=== PATIENT | male | born 1975 | race Caucasian/White ===

== ENCOUNTER 2022-05-07 13:06 | Inpatient (IN) | payer MEDICAID, OTHER ==
[~2022-05-07] VITALS: Ht 170.2 cm; Wt 97.5 kg
[2022-05-07] MEDS ORDERED: ACETAMINOPHEN 325MG TABLET PO ONE (15:00)
[2022-05-07] MEDS ORDERED: MORPHINE SULFATE 10 MG/ML CPJ IM ONE (15:00)
[2022-05-07] MEDS ORDERED: MORPHINE SULFATE 10 MG/ML CPJ IM NR (15:15)
[2022-05-07] MEDS ORDERED: ACETAMINOPHEN 325MG TABLET PO NR (15:30)
[2022-05-07 17:13] LABS: BASOPHILS % 0.4 % (0.0-2.0); EOSINOPHILS % 0.2 % (0.0-5.0); HEMATOCRIT. 28.1 % (42.0-52.0); HEMOGLOBIN. 9.6 g/dL (14.0-18.0); LYMPHOCYTES % 8.4 % (20.0-50.0); MEAN CORPUSCULAR VOLUME 82.4 fL (80.0-94.0); MEAN PLATELET VOLUME 6.9 fl (7.4-10.4); PLATELET 534 x1000/uL (130-400); RED BLOOD CELL COUNT 3.41 mill/uL (4.7-6.1); RED CELL DISTRIBUTION WIDTH 12.8 % (11.6-14.6)
[2022-05-07 17:23] LABS: PARTIAL THROMBOPLASTIN TIME 32.5 sec (23.4-31.0); PROTHROMBIN TIME 11.2 sec (9.6-11.0)
[2022-05-07] MEDS ORDERED: SODIUM CHLORIDE 0.9% 1,000 ML IV NR (18:30)
[2022-05-07] MEDS ORDERED: INSULIN REGULAR (HUMULIN R) 300UNITS/3ML VIAL SUBCUT NR (18:30)
[2022-05-07] MEDS ORDERED: HEPARIN 80 UNITS/KG BOLUS IV NR (18:45)
[2022-05-07] MEDS ORDERED: HEPARIN 25,000 UNITS PREMIX 250 ML IV SCH ×3 (19:00→21:15)
[2022-05-07] MEDS ORDERED: INSULIN REGULAR (HUMULIN R) 300UNITS/3ML VIAL IV ONE (19:15)
[2022-05-07 21:07] LABS: CLARITY URINE CLEAR (CLEAR); COLOR URINE YELLOW (YELLOW); KETONES URINE TRACE (NEGATIVE); LEUKOCYTE ESTERASE URINE NEGATIVE (NEGATIVE); NITRITE URINE NEGATIVE (NEGATIVE); OCCULT BLOOD URINE 1+ (NEGATIVE); PROTEIN URINE 3+ (NEGATIVE); SPECIFIC GRAVITY URINE 1.028 (1.005-1.030); UROBILINOGEN URINE 0.2 E.U./dL (0.2-1.0)
[2022-05-07] MEDS ORDERED: HYDROMORPHONE HCL/PF 2MG/ML CPJ IV PRN (21:15)
[2022-05-07] MEDS ORDERED: ONDANSETRON HCL 4MG/2ML INJ IV PRN (21:15)
[2022-05-07] MEDS ORDERED: ZOLPIDEM TARTRATE 5MG TABLET PO PRN (21:15)
[2022-05-07] MEDS ORDERED: SODIUM CHLORIDE 0.9% 1,000 ML IV ONE (21:45)
[2022-05-07] MEDS ORDERED: ENOXAPARIN 100MG/ML SYR SUBCUT SCH (22:00)
[2022-05-07] MEDS ORDERED: INSULIN GLARGINE 100 UNITS/ML SUBCUT SCH (22:00)
[2022-05-07] MEDS ORDERED: PIPERACILLIN/TAZ 3.375G PREMIX 50 ML IV SCH (22:00)
[2022-05-07] MEDS: ENOXAPARIN 100MG/ML SYR SUBCUT SCH (23:09)
[2022-05-08 01:14] VITALS: BP 148/76
[2022-05-08] MEDS ORDERED: HEPARIN BOLUS PRN aPTT <36 IV (02:00)
[2022-05-08] MEDS ORDERED: HEPARIN BOLUS PRN aPTT 37-44 IV (02:00)
[2022-05-08] MEDS ORDERED: LISI20TA31 MT (03:53)
[2022-05-08] MEDS ORDERED: INSLIS SUBCUT (03:53)
[2022-05-08] MEDS ORDERED: LIP40 MT (03:53)
[2022-05-08 06:10] LABS: BASOPHILS % 0.1 % (0.0-2.0); EOSINOPHILS % 0.1 % (0.0-5.0); HEMATOCRIT. 25.6 % (42.0-52.0); HEMOGLOBIN. 8.5 g/dL (14.0-18.0); LYMPHOCYTES % 7.5 % (20.0-50.0); MEAN CORPUSCULAR HEMOGLOBIN 27.5 pg (28.0-32.0); MEAN CORPUSCULAR VOLUME 82.5 fL (80.0-94.0); MEAN PLATELET VOLUME 7.1 fl (7.4-10.4); MONOCYTES % 7.3 % (2.0-8.0); PLATELET 450 x1000/uL (130-400); RED CELL DISTRIBUTION WIDTH 12.9 % (11.6-14.6)
[2022-05-08 06:29] LABS: CHLORIDE 93 mEq/L (98-107)
[2022-05-08] MEDS: PIPERACILLIN/TAZOBACTAM 3.375G in DEXT 5% WATER 50ML IV SCH ×3 (06:58→21:15)
[2022-05-08] MEDS ORDERED: DEXTROSE 50% WATER 50ML SYRINGE IV PRN (07:00)
[2022-05-08] MEDS: INSULIN LISPRO 100 UNITS/ML SUBCUT SCH ×4 (07:05→20:44)
[2022-05-08] MEDS: BLOOD SUGAR DIAGNOSTIC STRIP TEST SCH ×4 (07:05→20:44)
[2022-05-08 07:57] VITALS: BP 174/92
[2022-05-08] MEDS: ENOXAPARIN 100MG/ML SYR SUBCUT SCH ×2 (08:48→20:43)
[2022-05-08] MEDS: SODIUM CHLORIDE 0.9% 1,000 ML IV SCH ×2 (09:00→14:22)
[2022-05-08] MEDS ORDERED: NALOXONE HCL 0.4MG/ML VIAL IV PRN (09:15)
[2022-05-08] MEDS: LISINOPRIL 20MG TABLET PO SCH (09:51)
[2022-05-08] MEDS: INSULIN GLARGINE 100 UNITS/ML SUBCUT SCH ×2 (09:52→21:53)
[2022-05-08] MEDS: HYDROCODONE/ACETAMINOPHEN 5/325MG TABLET PO PRN ×2 (09:58→14:23)
[2022-05-08] MEDS ORDERED: INSULIN GLARGINE 100 UNITS/ML SUBCUT SCH (10:00)
[2022-05-08 12:00] VITALS: BP 166/82
[2022-05-08] MEDS ORDERED: INSULIN LISPRO 100 UNITS/ML SUBCUT NR (12:00)
[2022-05-08] MEDS: CLONIDINE 0.1MG TABLET PO PRN ×2 (12:44→20:44)
[2022-05-08 16:00] VITALS: BP 141/73
[2022-05-08 20:00] VITALS: BP 160/76
[2022-05-08] MEDS: FAMOTIDINE 20MG TABLET PO SCH (20:43)
[2022-05-09] VITALS (9 sets, daily range): BP systolic 138–159; BP diastolic 60–87
[2022-05-09] MEDS: HYDROCODONE/ACETAMINOPHEN 5/325MG TABLET PO PRN ×4 (00:34→14:14)
[2022-05-09] MEDS: SODIUM CHLORIDE 0.9% 1,000 ML IV SCH ×2 (05:00→17:20)
[2022-05-09] MEDS: PIPERACILLIN/TAZOBACTAM 3.375G in DEXT 5% WATER 50ML IV SCH ×4 (05:35→21:14)
[2022-05-09] MEDS: BLOOD SUGAR DIAGNOSTIC STRIP TEST SCH ×4 (05:56→21:08)
[2022-05-09] MEDS: INSULIN LISPRO 100 UNITS/ML SUBCUT SCH ×4 (05:56→21:08)
[2022-05-09 06:47] LABS: BASOPHILS % 0.3 % (0.0-2.0); EOSINOPHILS % 0.2 % (0.0-5.0); HEMOGLOBIN. 7.1 g/dL (14.0-18.0); LYMPHOCYTES % 10.8 % (20.0-50.0); MEAN CORPUSCULAR HEMOGLOBIN 27.4 pg (28.0-32.0); MEAN CORPUSCULAR VOLUME 80.9 fL (80.0-94.0); MEAN PLATELET VOLUME 6.6 fl (7.4-10.4); MONOCYTES % 8.5 % (2.0-8.0); NEUTROPHILS % 80.2 % (40.0-76.0); PLATELET 442 x1000/uL (130-400); RED BLOOD CELL COUNT 2.59 mill/uL (4.7-6.1); RED CELL DISTRIBUTION WIDTH 12.6 % (11.6-14.6)
[2022-05-09 07:38] LABS: HEMATOCRIT. 20.9 % (42.0-52.0)
[2022-05-09] MEDS: LISINOPRIL 20MG TABLET PO SCH (08:57)
[2022-05-09] MEDS: ENOXAPARIN 100MG/ML SYR SUBCUT SCH (08:58)
[2022-05-09] MEDS: INSULIN GLARGINE 100 UNITS/ML SUBCUT SCH ×2 (10:00→21:54)
[2022-05-09 15:21] LABS: HEMATOCRIT 20.3 % (42.0-52.0)
[2022-05-09] MEDS: HYDROCODONE/ACETAMINOPHEN 10/325MG TABLET PO PRN (17:59)
[2022-05-09] MEDS: FAMOTIDINE 20MG TABLET PO SCH (21:03)
[2022-05-10] VITALS (8 sets, daily range): BP systolic 124–175; BP diastolic 75–88
[2022-05-10] MEDS: CLONIDINE 0.1MG TABLET PO PRN ×2 (01:48→08:13)
[2022-05-10] MEDS: PIPERACILLIN/TAZOBACTAM 3.375G in DEXT 5% WATER 50ML IV SCH ×3 (05:35→22:25)
[2022-05-10] MEDS: HYDROCODONE/ACETAMINOPHEN 10/325MG TABLET PO PRN ×3 (05:57→18:27)
[2022-05-10] MEDS: BLOOD SUGAR DIAGNOSTIC STRIP TEST SCH ×4 (05:58→21:00)
[2022-05-10] MEDS: INSULIN LISPRO 100 UNITS/ML SUBCUT SCH ×4 (05:58→22:22)
[2022-05-10 06:53] LABS: BASOPHILS % 0.2 % (0.0-2.0); EOSINOPHILS % 0.4 % (0.0-5.0); HEMOGLOBIN. 7.7 g/dL (14.0-18.0); LYMPHOCYTES % 9.3 % (20.0-50.0); MEAN CORPUSCULAR HEMOGLOBIN 27.9 pg (28.0-32.0); MEAN CORPUSCULAR VOLUME 79.6 fL (80.0-94.0); MEAN PLATELET VOLUME 6.6 fl (7.4-10.4); MONOCYTES % 8.8 % (2.0-8.0); NEUTROPHILS % 81.3 % (40.0-76.0); PLATELET 441 x1000/uL (130-400); RED BLOOD CELL COUNT 2.76 mill/uL (4.7-6.1); RED CELL DISTRIBUTION WIDTH 12.9 % (11.6-14.6)
[2022-05-10 07:08] LABS: CHLORIDE 95 mEq/L (98-107)
[2022-05-10] MEDS: LISINOPRIL 20MG TABLET PO SCH (08:13)
[2022-05-10] MEDS: INSULIN GLARGINE 100 UNITS/ML SUBCUT SCH ×2 (09:21→22:24)
[2022-05-10 16:55] LABS: PROTHROMBIN TIME 10.9 sec (9.6-11.0)
[2022-05-10 17:11] LABS: TOTAL IRON BINDING CAPACITY 105 ug/dL (250-450)
[2022-05-10] MEDS: SODIUM CHLORIDE 0.9% 1,000 ML IV SCH (18:26)
[2022-05-10] MEDS: FAMOTIDINE 20MG TABLET PO SCH (22:19)
[2022-05-10] MEDS: ACETAMINOPHEN 325MG TABLET PO PRN (22:20)
[2022-05-11] VITALS: BP 144/91
[2022-05-11] MEDS: HYDROCODONE/ACETAMINOPHEN 10/325MG TABLET PO PRN ×3 (01:21→17:14)
[2022-05-11 04:00] VITALS: BP 154/98
[2022-05-11] MEDS: PIPERACILLIN/TAZOBACTAM 3.375G in DEXT 5% WATER 50ML IV SCH ×3 (06:19→21:22)
[2022-05-11] MEDS: SODIUM CHLORIDE 0.9% 1,000 ML IV SCH ×4 (06:19→21:38)
[2022-05-11 06:31] LABS: BASOPHILS % 0.2 % (0.0-2.0); EOSINOPHILS % 0.6 % (0.0-5.0); HEMATOCRIT. 21.9 % (42.0-52.0); HEMOGLOBIN. 7.6 g/dL (14.0-18.0); LYMPHOCYTES % 9.4 % (20.0-50.0); MEAN CORPUSCULAR HEMOGLOBIN 27.4 pg (28.0-32.0); MEAN PLATELET VOLUME 6.5 fl (7.4-10.4); MONOCYTES % 10.6 % (2.0-8.0); NEUTROPHILS % 79.2 % (40.0-76.0); PLATELET 421 x1000/uL (130-400); RED BLOOD CELL COUNT 2.77 mill/uL (4.7-6.1); RED CELL DISTRIBUTION WIDTH 13.2 % (11.6-14.6)
[2022-05-11] MEDS: BLOOD SUGAR DIAGNOSTIC STRIP TEST SCH ×4 (06:35→21:13)
[2022-05-11] MEDS: INSULIN LISPRO 100 UNITS/ML SUBCUT SCH ×4 (07:40→21:00)
[2022-05-11 08:00] VITALS: BP 173/87
[2022-05-11] MEDS: INSULIN GLARGINE 100 UNITS/ML SUBCUT SCH ×2 (10:22→21:25)
[2022-05-11] MEDS: LISINOPRIL 20MG TABLET PO SCH (10:29)
[2022-05-11 12:00] VITALS: BP 139/77
[2022-05-11 16:00] VITALS: BP 119/67
[2022-05-11] MEDS: ACETAMINOPHEN 325MG TABLET PO PRN (16:19)
[2022-05-11 20:00] VITALS: BP 140/80
[2022-05-11] MEDS: FAMOTIDINE 20MG TABLET PO SCH (21:28)
[2022-05-12] VITALS (10 sets, daily range): BP systolic 153–168; BP diastolic 81–99
[2022-05-12] MEDS: SODIUM CHLORIDE 0.9% 1,000 ML IV SCH ×3 (00:16→17:55)
[2022-05-12] MEDS: HYDROCODONE/ACETAMINOPHEN 10/325MG TABLET PO PRN ×4 (00:18→20:33)
[2022-05-12] MEDS: PIPERACILLIN/TAZOBACTAM 3.375G in DEXT 5% WATER 50ML IV SCH ×3 (05:16→21:42)
[2022-05-12] MEDS: BLOOD SUGAR DIAGNOSTIC STRIP TEST SCH ×4 (06:36→20:38)
[2022-05-12 06:51] LABS: BASOPHILS % 0.2 % (0.0-2.0); EOSINOPHILS % 0.5 % (0.0-5.0); HEMATOCRIT. 21.2 % (42.0-52.0); HEMOGLOBIN. 7.2 g/dL (14.0-18.0); LYMPHOCYTES % 9.3 % (20.0-50.0); MEAN CORPUSCULAR HEMOGLOBIN 27.2 pg (28.0-32.0); MEAN CORPUSCULAR VOLUME 79.9 fL (80.0-94.0); MEAN PLATELET VOLUME 6.2 fl (7.4-10.4); MONOCYTES % 9.6 % (2.0-8.0); NEUTROPHILS % 80.4 % (40.0-76.0); PLATELET 482 x1000/uL (130-400); RED BLOOD CELL COUNT 2.66 mill/uL (4.7-6.1)
[2022-05-12 07:22] LABS: CHLORIDE 96 mEq/L (98-107)
[2022-05-12] MEDS: LISINOPRIL 20MG TABLET PO SCH (08:20)
[2022-05-12] MEDS: INSULIN GLARGINE 100 UNITS/ML SUBCUT SCH ×2 (10:08→21:43)
[2022-05-12] MEDS: INSULIN LISPRO 100 UNITS/ML SUBCUT SCH ×3 (12:52→20:38)
[2022-05-12] MEDS: CLONIDINE 0.1MG TABLET PO PRN (15:07)
[2022-05-12 19:12] LABS: HEMATOCRIT 23.8 % (42.0-52.0); HEMOGLOBIN 8.1 g/dL (14.0-18.0)
[2022-05-12] MEDS: FAMOTIDINE 20MG TABLET PO SCH (20:38)
[2022-05-13] VITALS: BP 147/84
[2022-05-13] MEDS ORDERED: VANCOMYCIN 1,750 MG in DEXT 5% WATER 250 ML IV NR ×2
[2022-05-13] MEDS: HYDROCODONE/ACETAMINOPHEN 10/325MG TABLET PO PRN ×4 (02:33→23:16)
[2022-05-13 04:00] VITALS: BP 148/79
[2022-05-13] MEDS: SODIUM CHLORIDE 0.9% 1,000 ML IV SCH ×2 (05:30→15:55)
[2022-05-13] MEDS: PIPERACILLIN/TAZOBACTAM 3.375G in DEXT 5% WATER 50ML IV SCH (05:46)
[2022-05-13] MEDS: BLOOD SUGAR DIAGNOSTIC STRIP TEST SCH ×4 (05:54→20:32)
[2022-05-13] MEDS: INSULIN LISPRO 100 UNITS/ML SUBCUT SCH ×4 (05:54→20:32)
[2022-05-13 06:42] LABS: BASOPHILS % 0.2 % (0.0-2.0); EOSINOPHILS % 0.7 % (0.0-5.0); HEMATOCRIT. 21.2 % (42.0-52.0); HEMOGLOBIN. 7.4 g/dL (14.0-18.0); LYMPHOCYTES % 9.6 % (20.0-50.0); MEAN CORPUSCULAR VOLUME 80.4 fL (80.0-94.0); MEAN PLATELET VOLUME 6.1 fl (7.4-10.4); MONOCYTES % 9.8 % (2.0-8.0); NEUTROPHILS % 79.7 % (40.0-76.0); PLATELET 455 x1000/uL (130-400); RED BLOOD CELL COUNT 2.64 mill/uL (4.7-6.1); RED CELL DISTRIBUTION WIDTH 12.9 % (11.6-14.6)
[2022-05-13 08:26] VITALS: BP 173/90
[2022-05-13] MEDS: LISINOPRIL 20MG TABLET PO SCH (08:39)
[2022-05-13] MEDS: CLONIDINE 0.1MG TABLET PO PRN (08:40)
[2022-05-13] MEDS: ACETAMINOPHEN 325MG TABLET PO PRN ×2 (08:40→15:55)
[2022-05-13] MEDS: INSULIN GLARGINE 100 UNITS/ML SUBCUT SCH ×2 (10:20→21:16)
[2022-05-13 12:00] VITALS: BP 150/73
[2022-05-13 15:40] VITALS: BP 154/80
[2022-05-13] MEDS: VANCOMYCIN 1250MG in DEXTROSE 5% WATER 250ML IV SCH (15:55)
[2022-05-13 20:00] VITALS: BP 127/67
[2022-05-13 20:16] LABS: HEMATOCRIT 22.9 % (42.0-52.0)
[2022-05-13] MEDS: FAMOTIDINE 20MG TABLET PO SCH (20:32)
[2022-05-14] VITALS: BP 144/76
[2022-05-14 04:00] VITALS: BP 150/76
[2022-05-14] MEDS: SODIUM CHLORIDE 0.9% 1,000 ML IV SCH ×2 (04:32→16:17)
[2022-05-14 06:10] LABS: BASOPHILS % 0.2 % (0.0-2.0); EOSINOPHILS % 0.8 % (0.0-5.0); HEMATOCRIT. 22.5 % (42.0-52.0); HEMOGLOBIN. 7.6 g/dL (14.0-18.0); LYMPHOCYTES % 10.3 % (20.0-50.0); MEAN CORPUSCULAR HEMOGLOBIN 27.5 pg (28.0-32.0); MEAN CORPUSCULAR VOLUME 80.8 fL (80.0-94.0); MEAN PLATELET VOLUME 6.1 fl (7.4-10.4); MONOCYTES % 10.4 % (2.0-8.0); NEUTROPHILS % 78.3 % (40.0-76.0); PLATELET 546 x1000/uL (130-400); RED BLOOD CELL COUNT 2.78 mill/uL (4.7-6.1); RED CELL DISTRIBUTION WIDTH 12.9 % (11.6-14.6)
[2022-05-14] MEDS: INSULIN LISPRO 100 UNITS/ML SUBCUT SCH ×4 (06:39→21:00)
[2022-05-14] MEDS: BLOOD SUGAR DIAGNOSTIC STRIP TEST SCH ×4 (06:39→21:59)
[2022-05-14 07:52] VITALS: BP 149/74
[2022-05-14] MEDS: ACETAMINOPHEN 325MG TABLET PO PRN ×2 (08:04→15:08)
[2022-05-14] MEDS: LISINOPRIL 20MG TABLET PO SCH (08:04)
[2022-05-14] MEDS ORDERED: LIDOCAINE HCL 1% 10 MG/ML 10ML VIAL ONE (08:09)
[2022-05-14] MEDS ORDERED: SODIUM BICARBONATE 4% (2.4MEQ) 5ML VIAL IV ONE (08:09)
[2022-05-14] MEDS: INSULIN GLARGINE 100 UNITS/ML SUBCUT SCH ×2 (10:00→22:00)
[2022-05-14] MEDS: VANCOMYCIN 1250MG in DEXTROSE 5% WATER 250ML IV SCH (10:13)
[2022-05-14] MEDS: HYDROCODONE/ACETAMINOPHEN 10/325MG TABLET PO PRN (10:13)
[2022-05-14 11:36] VITALS: BP 158/86
[2022-05-14] MEDS ORDERED: DEXT 5%/0.9% NACL 1,000 ML IV SCH (13:45)
[2022-05-14] MEDS: LIDOCAINE 5% PATCH TOP SCH (14:07)
[2022-05-14] MEDS ORDERED: MORPHINE SULFATE 4 MG/ML CPJ (NOT FOR IM USE) IV NR (14:08)
[2022-05-14] MEDS ORDERED: MORPHINE SULFATE 4 MG/ML CPJ (NOT FOR IM USE) IV PRN (14:15)
[2022-05-14] MEDS: CLONIDINE 0.1MG TABLET PO PRN ×2 (15:09→23:48)
[2022-05-14 15:14] VITALS: BP 179/98
[2022-05-14 20:00] VITALS: BP 169/88
[2022-05-14] MEDS: FAMOTIDINE 20MG TABLET PO SCH (23:45)
[2022-05-15] VITALS (7 sets, daily range): BP systolic 138–168; BP diastolic 70–81
[2022-05-15 03:06] LABS: HEMOGLOBIN. 7.3 g/dL (14.0-18.0); MEAN CORPUSCULAR HEMOGLOBIN 27.9 pg (28.0-32.0); MEAN CORPUSCULAR VOLUME 80.7 fL (80.0-94.0); MEAN PLATELET VOLUME 5.9 fl (7.4-10.4); PLATELET 584 x1000/uL (130-400); RED CELL DISTRIBUTION WIDTH 13.3 % (11.6-14.6)
[2022-05-15 03:13] LABS: CHLORIDE 101 mEq/L (98-107)
[2022-05-15 03:19] LABS: VANCOMYCIN TROUGH 16.2 ug/mL (5.0-10.0)
[2022-05-15] MEDS: MORPHINE SULFATE 2 MG/ML CPJ (NOT FOR IM USE) IV PRN ×4 (03:47→21:19)
[2022-05-15] MEDS: VANCOMYCIN 1250MG in DEXTROSE 5% WATER 250ML IV SCH ×2 (03:48→21:20)
[2022-05-15] MEDS: SODIUM CHLORIDE 0.9% 1,000 ML IV SCH ×2 (03:48→13:39)
[2022-05-15 05:19] LABS: PLATELET ESTIMATE INCREASED
[2022-05-15] MEDS: INSULIN LISPRO 100 UNITS/ML SUBCUT SCH ×4 (06:39→21:21)
[2022-05-15] MEDS: BLOOD SUGAR DIAGNOSTIC STRIP TEST SCH ×4 (06:39→21:21)
[2022-05-15] MEDS: CLONIDINE 0.1MG TABLET PO PRN (08:04)
[2022-05-15] MEDS: LIDOCAINE 5% PATCH TOP SCH (08:04)
[2022-05-15] MEDS: LISINOPRIL 20MG TABLET PO SCH (08:04)
[2022-05-15] MEDS: INSULIN GLARGINE 100 UNITS/ML SUBCUT SCH ×2 (09:39→23:17)
[2022-05-15] MEDS: FAMOTIDINE 20MG TABLET PO SCH (21:17)
[2022-05-16] VITALS: BP 159/79
[2022-05-16] MEDS: ACETAMINOPHEN 325MG TABLET PO PRN ×2 (00:06→16:48)
[2022-05-16 04:00] VITALS: BP 149/82
[2022-05-16] MEDS: SODIUM CHLORIDE 0.9% 1,000 ML IV SCH ×3 (06:17→16:49)
[2022-05-16] MEDS: INSULIN LISPRO 100 UNITS/ML SUBCUT SCH ×4 (06:21→20:48)
[2022-05-16] MEDS: BLOOD SUGAR DIAGNOSTIC STRIP TEST SCH ×4 (06:21→20:49)
[2022-05-16 07:26] LABS: BASOPHILS % 0.6 % (0.0-2.0); EOSINOPHILS % 0.6 % (0.0-5.0); HEMATOCRIT. 21.7 % (42.0-52.0); HEMOGLOBIN. 7.4 g/dL (14.0-18.0); LYMPHOCYTES % 10.2 % (20.0-50.0); MEAN CORPUSCULAR HEMOGLOBIN 27.8 pg (28.0-32.0); MEAN CORPUSCULAR VOLUME 82.2 fL (80.0-94.0); MONOCYTES % 8.9 % (2.0-8.0); NEUTROPHILS % 79.7 % (40.0-76.0); PLATELET 733 x1000/uL (130-400); RED BLOOD CELL COUNT 2.64 mill/uL (4.7-6.1); RED CELL DISTRIBUTION WIDTH 13.3 % (11.6-14.6)
[2022-05-16 07:45] VITALS: BP 152/77
[2022-05-16] MEDS: LISINOPRIL 20MG TABLET PO SCH (08:22)
[2022-05-16] MEDS: LIDOCAINE 5% PATCH TOP SCH (08:22)
[2022-05-16] MEDS: MORPHINE SULFATE 2 MG/ML CPJ (NOT FOR IM USE) IV PRN ×2 (09:49→20:41)
[2022-05-16] MEDS: INSULIN GLARGINE 100 UNITS/ML SUBCUT SCH ×2 (09:52→21:59)
[2022-05-16 11:48] VITALS: BP 142/85
[2022-05-16] MEDS: VANCOMYCIN 1250MG in DEXTROSE 5% WATER 250ML IV SCH (15:38)
[2022-05-16 16:00] VITALS: BP 145/80
[2022-05-16] MEDS ORDERED: SENNOSIDES 8.6MG TABLET PO PRN (17:15)
[2022-05-16] MEDS ORDERED: LACTULOSE 20G/30ML UDC PO SCH (17:15)
[2022-05-16 20:00] VITALS: BP 153/83
[2022-05-16] MEDS: FAMOTIDINE 20MG TABLET PO SCH (20:48)
[2022-05-16] MEDS: CEFTRIAXONE 1,000 MG in DEXTROSE 5% WATER 50 ML IV SCH (22:24)
[2022-05-17] VITALS (13 sets, daily range): BP systolic 141–175; BP diastolic 77–93
[2022-05-17] MEDS: MORPHINE SULFATE 2 MG/ML CPJ (NOT FOR IM USE) IV PRN ×3 (04:16→20:35)
[2022-05-17] MEDS: SODIUM CHLORIDE 0.9% 1,000 ML IV SCH ×2 (05:37→15:44)
[2022-05-17] MEDS: INSULIN LISPRO 100 UNITS/ML SUBCUT SCH ×4 (06:04→20:28)
[2022-05-17] MEDS: BLOOD SUGAR DIAGNOSTIC STRIP TEST SCH ×4 (06:04→20:28)
[2022-05-17] MEDS: LISINOPRIL 20MG TABLET PO SCH (08:07)
[2022-05-17] MEDS: LIDOCAINE 5% PATCH TOP SCH (08:07)
[2022-05-17] MEDS: DOCUSATE SODIUM 250MG CAPSULE PO SCH (08:08)
[2022-05-17 08:42] LABS: BASOPHILS % 0.6 % (0.0-2.0); EOSINOPHILS % 0.8 % (0.0-5.0); HEMATOCRIT. 21.4 % (42.0-52.0); HEMOGLOBIN. 7.1 g/dL (14.0-18.0); LYMPHOCYTES % 10.4 % (20.0-50.0); MEAN CORPUSCULAR HEMOGLOBIN 27.4 pg (28.0-32.0); MEAN CORPUSCULAR VOLUME 82.2 fL (80.0-94.0); MEAN PLATELET VOLUME 5.9 fl (7.4-10.4); MONOCYTES % 8.8 % (2.0-8.0); NEUTROPHILS % 79.4 % (40.0-76.0); PLATELET 771 x1000/uL (130-400); RED CELL DISTRIBUTION WIDTH 13.4 % (11.6-14.6)
[2022-05-17] MEDS: INSULIN GLARGINE 100 UNITS/ML SUBCUT SCH ×2 (10:02→21:39)
[2022-05-17] MEDS: HYDROCODONE/ACETAMINOPHEN 5/325MG TABLET PO PRN (14:59)
[2022-05-17] MEDS: METHYLPREDNISOLONE SOD SUCC 40 MG/ML VIAL IV SCH ×2 (16:27→23:22)
[2022-05-17] MEDS: CLONIDINE 0.1MG TABLET PO PRN (17:46)
[2022-05-17 18:08] LABS: CLARITY URINE CLEAR (CLEAR); COLOR URINE YELLOW (YELLOW); KETONES URINE NEGATIVE (NEGATIVE); LEUKOCYTE ESTERASE URINE NEGATIVE (NEGATIVE); NITRITE URINE NEGATIVE (NEGATIVE); OCCULT BLOOD URINE TRACE (NEGATIVE); PROTEIN URINE 2+ (NEGATIVE); SPECIFIC GRAVITY URINE 1.007 (1.005-1.030); UROBILINOGEN URINE 0.2 E.U./dL (0.2-1.0)
[2022-05-17] MEDS: FAMOTIDINE 20MG TABLET PO SCH (20:28)
[2022-05-17] MEDS: CEFTRIAXONE 1,000 MG in DEXTROSE 5% WATER 50 ML IV SCH (20:28)
[2022-05-17 21:06] LABS: HEMATOCRIT 26.7 % (42.0-52.0); HEMOGLOBIN 9.2 g/dL (14.0-18.0)
[2022-05-18] VITALS: BP 150/83
[2022-05-18] MEDS ORDERED: VANCOMYCIN 1250MG in DEXTROSE 5% WATER 250ML IV SCH ×2
[2022-05-18 04:00] VITALS: BP 159/97
[2022-05-18] MEDS: BLOOD SUGAR DIAGNOSTIC STRIP TEST SCH ×4 (05:59→20:44)
[2022-05-18] MEDS: INSULIN LISPRO 100 UNITS/ML SUBCUT SCH ×4 (05:59→21:07)
[2022-05-18 08:00] VITALS: BP 150/90
[2022-05-18 08:12] LABS: BASOPHILS % 0.1 % (0.0-2.0); HEMATOCRIT. 27.5 % (42.0-52.0); HEMOGLOBIN. 9.4 g/dL (14.0-18.0); LYMPHOCYTES % 8.6 % (20.0-50.0); MEAN CORPUSCULAR HEMOGLOBIN 28.2 pg (28.0-32.0); MEAN CORPUSCULAR VOLUME 82.5 fL (80.0-94.0); MEAN PLATELET VOLUME 5.8 fl (7.4-10.4); MONOCYTES % 2.1 % (2.0-8.0); NEUTROPHILS % 89.2 % (40.0-76.0); PLATELET 833 x1000/uL (130-400); RED BLOOD CELL COUNT 3.33 mill/uL (4.7-6.1); RED CELL DISTRIBUTION WIDTH 13.3 % (11.6-14.6)
[2022-05-18] MEDS: METHYLPREDNISOLONE SOD SUCC 40 MG/ML VIAL IV SCH ×2 (08:19→15:48)
[2022-05-18] MEDS: LIDOCAINE 5% PATCH TOP SCH (08:20)
[2022-05-18] MEDS: DOCUSATE SODIUM 250MG CAPSULE PO SCH (08:20)
[2022-05-18] MEDS: AMLODIPINE 10MG TABLET PO SCH (08:20)
[2022-05-18] MEDS: HYDROCODONE/ACETAMINOPHEN 5/325MG TABLET PO PRN ×3 (08:21→21:03)
[2022-05-18 08:26] LABS: PHOSPHORUS 4.6 mg/dL (2.5-4.9)
[2022-05-18] MEDS: INSULIN GLARGINE 100 UNITS/ML SUBCUT SCH ×2 (09:35→21:06)
[2022-05-18 11:55] VITALS: BP 150/86
[2022-05-18] MEDS: SODIUM CHLORIDE 0.9% 1,000 ML IV SCH ×2 (12:05→12:06)
[2022-05-18] MEDS: CLONIDINE 0.1MG TABLET PO PRN (15:14)
[2022-05-18 15:30] VITALS: BP 158/95
[2022-05-18 20:00] VITALS: BP 155/78
[2022-05-18] MEDS: FAMOTIDINE 20MG TABLET PO SCH (21:03)
[2022-05-18] MEDS: CEFTRIAXONE 1,000 MG in DEXTROSE 5% WATER 50 ML IV SCH (21:04)
[2022-05-18] MEDS: VANCOMYCIN 1GM PMX (XELLIA) 200 ML IV SCH (21:04)
[2022-05-19] VITALS: BP 155/64
[2022-05-19] MEDS: METHYLPREDNISOLONE SOD SUCC 40 MG/ML VIAL IV SCH ×4 (00:03→23:25)
[2022-05-19 04:00] VITALS: BP 156/77
[2022-05-19] MEDS: BLOOD SUGAR DIAGNOSTIC STRIP TEST SCH ×4 (05:01→20:27)
[2022-05-19] MEDS: SODIUM CHLORIDE 0.9% 1,000 ML IV SCH ×3 (05:19→17:11)
[2022-05-19] MEDS: INSULIN LISPRO 100 UNITS/ML SUBCUT SCH ×4 (05:23→20:27)
[2022-05-19] MEDS: HYDROCODONE/ACETAMINOPHEN 5/325MG TABLET PO PRN ×3 (05:36→17:07)
[2022-05-19 08:00] VITALS: BP 157/84
[2022-05-19 08:00] LABS: BASOPHILS % 0.1 % (0.0-2.0); HEMATOCRIT. 26.2 % (42.0-52.0); HEMOGLOBIN. 8.8 g/dL (14.0-18.0); LYMPHOCYTES % 7.8 % (20.0-50.0); MEAN CORPUSCULAR HEMOGLOBIN 27.9 pg (28.0-32.0); MEAN CORPUSCULAR VOLUME 82.8 fL (80.0-94.0); MEAN PLATELET VOLUME 5.8 fl (7.4-10.4); MONOCYTES % 2.9 % (2.0-8.0); NEUTROPHILS % 89.2 % (40.0-76.0); PLATELET 816 x1000/uL (130-400); RED BLOOD CELL COUNT 3.17 mill/uL (4.7-6.1); RED CELL DISTRIBUTION WIDTH 13.5 % (11.6-14.6)
[2022-05-19 08:32] LABS: PHOSPHORUS 4.2 mg/dL (2.5-4.9)
[2022-05-19] MEDS: LIDOCAINE 5% PATCH TOP SCH (08:32)
[2022-05-19] MEDS: AMLODIPINE 10MG TABLET PO SCH (08:33)
[2022-05-19] MEDS: DOCUSATE SODIUM 250MG CAPSULE PO SCH (08:33)
[2022-05-19] MEDS: ACETAMINOPHEN 325MG TABLET PO PRN (08:36)
[2022-05-19] MEDS: POLYETHYLENE GLYCOL 3350 (17GM) 1 DOSE PACK PO PRN (08:37)
[2022-05-19] MEDS: INSULIN GLARGINE 100 UNITS/ML SUBCUT SCH ×2 (11:04→20:14)
[2022-05-19 12:00] VITALS: BP 152/81
[2022-05-19] MEDS ORDERED: SENN-257 PO (15:36)
[2022-05-19] MEDS ORDERED: AMLO10TA80 PO (15:36)
[2022-05-19] MEDS ORDERED: INSLIS SUBCUT (15:36)
[2022-05-19] MEDS ORDERED: SYRI-219 SQ (15:36)
[2022-05-19] MEDS ORDERED: BLOO-1465 MT (15:36)
[2022-05-19] MEDS ORDERED: MED4 MT (15:36)
[2022-05-19] MEDS ORDERED: LANC-929 TP (15:36)
[2022-05-19] MEDS ORDERED: HYDR-4001 PO (15:36)
[2022-05-19] MEDS ORDERED: LANTUSUD SUBCUT (15:36)
[2022-05-19] MEDS ORDERED: BLOO1KIT74 TP (15:40)
[2022-05-19] MEDS ORDERED: HYDR-4134 MT (15:40)
[2022-05-19 16:00] VITALS: BP 148/91
[2022-05-19 20:00] VITALS: BP 135/85
[2022-05-19] MEDS: VANCOMYCIN 1GM PMX (XELLIA) 200 ML IV SCH (20:15)
[2022-05-19] MEDS: FAMOTIDINE 20MG TABLET PO SCH (20:15)
[2022-05-19] MEDS: CEFTRIAXONE 1,000 MG in DEXTROSE 5% WATER 50 ML IV SCH (20:15)
[2022-05-19] MEDS: CLONIDINE 0.1MG TABLET PO PRN (23:25)
[2022-05-20] VITALS: BP 134/75
[2022-05-20 04:00] VITALS: BP 125/71
[2022-05-20] MEDS: INSULIN LISPRO 100 UNITS/ML SUBCUT SCH (05:57)
[2022-05-20] MEDS: BLOOD SUGAR DIAGNOSTIC STRIP TEST SCH (05:57)
[2022-05-20 07:34] LABS: BASOPHILS % 0.1 % (0.0-2.0); HEMATOCRIT. 26.9 % (42.0-52.0); HEMOGLOBIN. 9.1 g/dL (14.0-18.0); MEAN CORPUSCULAR HEMOGLOBIN 27.8 pg (28.0-32.0); MEAN CORPUSCULAR VOLUME 82.2 fL (80.0-94.0); MEAN PLATELET VOLUME 5.8 fl (7.4-10.4); MONOCYTES % 2.6 % (2.0-8.0); NEUTROPHILS % 88.3 % (40.0-76.0); PLATELET 871 x1000/uL (130-400); RED BLOOD CELL COUNT 3.28 mill/uL (4.7-6.1); RED CELL DISTRIBUTION WIDTH 13.4 % (11.6-14.6)
[2022-05-20 07:36] LABS: PHOSPHORUS 3.9 mg/dL (2.5-4.9)
[2022-05-20 08:00] VITALS: BP 154/85
[2022-05-20] MEDS: METHYLPREDNISOLONE SOD SUCC 40 MG/ML VIAL IV SCH (08:15)
[2022-05-20] MEDS: DOCUSATE SODIUM 250MG CAPSULE PO SCH (08:32)
[2022-05-20] MEDS: LIDOCAINE 5% PATCH TOP SCH (08:33)
[2022-05-20] MEDS: HYDROCODONE/ACETAMINOPHEN 5/325MG TABLET PO PRN (08:33)
[2022-05-20] MEDS: AMLODIPINE 10MG TABLET PO SCH (08:33)
[2022-05-20] MEDS: INSULIN GLARGINE 100 UNITS/ML SUBCUT SCH (09:59)
[2022-05-20 10:07] VITALS: BP 164/91
[2022-05-20] MEDS: CLONIDINE 0.1MG TABLET PO PRN (10:17)
[2022-05-20] MEDS: POLYETHYLENE GLYCOL 3350 (17GM) 1 DOSE PACK PO PRN (10:19)
== END 2022-05-20 11:29 | disposition home health service (06) | DRG 720 ==
LOC: ER 13:06 → 8WST 19:10 → ENRESERV 20:03
PROVIDERS: ADMIT Internal Medicine Pulmonary Disease; ATTEND Internal Medicine Pulmonary Disease
PROC: 30233N1 Transfusion of Nonautologous Red Blood Cells into Peripheral Vein, Percutaneous Approach (ICD-10-PCS; 2022-05-09)
PROC: 0S9D3ZZ Drainage of Left Knee Joint, Percutaneous Approach (ICD-10-PCS; principal; 2022-05-14)
DX: A41.9 Sepsis, unspecified organism (principal); I82.412 Acute embolism and thrombosis of left femoral vein; E11.22 Type 2 diabetes mellitus with diabetic chronic kidney disease; E87.1 Hypo-osmolality and hyponatremia; D63.1 Anemia in chronic kidney disease; E87.8 Other disorders of electrolyte and fluid balance, not elsewhere classified; D50.9 Iron deficiency anemia, unspecified; E66.9 Obesity, unspecified; E78.5 Hyperlipidemia, unspecified; M17.12 Unilateral primary osteoarthritis, left knee; M25.462 Effusion, left knee; I82.432 Acute embolism and thrombosis of left popliteal vein; S70.12XA Contusion of left thigh, initial encounter; Z20.822 Contact with and (suspected) exposure to COVID-19; E87.5 Hyperkalemia; I12.9 Hypertensive chronic kidney disease with stage 1 through stage 4 chronic kidney disease, or unspecified chronic kidney disease; N39.0 Urinary tract infection, site not specified; N18.30 Chronic kidney disease, stage 3 unspecified; F17.200 Nicotine dependence, unspecified, uncomplicated; Z82.49 Family history of ischemic heart disease and other diseases of the circulatory system; Z68.33 Body mass index [BMI] 33.0-33.9, adult; Z90.49 Acquired absence of other specified parts of digestive tract; W19.XXXA Unspecified fall, initial encounter; Y93.89 Activity, other specified; Y92.89 Other specified places as the place of occurrence of the external cause; Y99.8 Other external cause status
CPT/HCPCS: 20611; 36415; 71045; 73552; 73564; 73700; 73721; 76770; 80048; 80202; 81003; 82270; 82550; 82607; 82728; 82746; 82962; 83036; 83540; 83550; 83735; 84100; 84132; 84145; 84443; 85014; 85018; 85025; 85044; 85651; 86850; 86900; 86920; 87426; 89060; 93970; 93971; 97161; 97162; 97166; 97530; 99291; J0696; J1170; J1644; J1650; J1815; J2270; J2543; J2920; J3370; J3490; J7030; J7060; P9016